=== PATIENT | male | born 1965 | race African-American/Black ===

== ENCOUNTER 2021-11-02 03:03 | Inpatient (IN) ==
[2021-11-02] MEDS ORDERED: LACTATED RINGERS 1,000 ML IV ONE (05:14)
[2021-11-02 05:35] LABS: Basophils % 0.1 % (0.0-0.8); Eosinophils # 0.1 10*3/uL (0.0-0.87); Eosinophils % 1.2 % (0.00-10.9); Hematocrit 26.1 VOL% (42.0-52.0); Hemoglobin 8.7 GM/DL (14.0-18.0); Immature Granulocytes % 0.4 %; Immature Granulocytes Absolute 0.03 #; Lymphocytes # 1.6 10*3/uL (1.4-4.0); Lymphocytes % 20.9 % (21.2-54.2); Mean Corpuscular HGB Conc 33.3 GM/DL (32-36); Mean Corpuscular Volume 81.8 FL (87-102); Mean Platelet Volume 12.5 FL (9.6-12.0); Monocytes % 9.2 % (1.7-12.7); Neutrophils % 68.2 % (38.7-73.9); Platelet Count 221 T/CUMM (130-400); Red Blood Count 3.19 MC/CUMM (3.8-5.5); Red Cell Distribution Width 14.2 % (9.3-17.3); White Blood Count 7.8 T/CUMM (4-12)
[2021-11-02 06:09] LABS: Calcium 9.1 MG/DL (8.5-10.1); Potassium 5.9 MMOL/L (3.5-5.1)
[2021-11-02 06:31] LABS: Eosinophils 2 % (0-10); Lymphocytes 28 % (20-55); Metamyelocytes 1 %; Platelet Estimate Normal; Segmented Neutrophils 66 % (50-85); Total Cells Counted 100
[2021-11-02 06:32] LABS: Hypochromia 1+; Microcytosis 1+; Polychromasia Slight
[2021-11-02 06:44] LABS: Barbiturates Screen,Urine Negative (Negative); Benzodiazepines Screen,Urine Negative (Negative); Cannabinoid Screen,Urine Positive (Negative); Opiate Screen,Urine Negative (Negative); Phencyclidine Screen,Urine Negative (Negative)
[2021-11-02] MEDS ORDERED: SODIUM CHLORIDE 0.9% 1,000 ML IV STA (08:03)
[2021-11-02] MEDS ORDERED: ONDANSETRON 4 MG/2 ML VIAL IV PRN (09:11)
[2021-11-02 09:46] LABS: ABG Base Excess -10.2 MMOL/L (-2.5-2.5); ABG HCO3 16.2 MMOL/L (20-26); ABG Oxygen Saturation 95.8 % (95-100); ABG PCO2 34.8 MM HG (35-48); ABG PH 7.269 (7.35-7.45); ABG TCO2 14.9 MMOL/L (23-27)
[2021-11-02] MEDS ORDERED: SODIUM BICARB INJ 50 MEQ in SODIUM CHLORIDE 0.45% 1,000 ML IV SCH (10:00)
[2021-11-02 10:36] LABS: Calcium 8.9 MG/DL (8.5-10.1); Osmolality,Calculated 294.4 MOS/KG (273-304); Potassium 5.7 MMOL/L (3.5-5.1)
[2021-11-02 10:46] LABS: Thyroid Stimulating Hormone 0.841 uIU/ml (0.358-3.74)
[2021-11-02] MEDS: HEPARIN 5,000 UNIT/1 ML VIAL SUBCUT SCH ×2 (11:48→21:29)
[2021-11-02] MEDS: PANTOPRAZOLE 40 MG TABLET PO SCH (11:48)
[2021-11-02] MEDS: THIAMINE 100 MG TABLET PO SCH (11:48)
[2021-11-02] MEDS: FOLIC ACID 1 MG TABLET PO SCH (11:48)
[2021-11-02 13:00] LABS: Calcium 9.1 MG/DL (8.5-10.1); Osmolality,Calculated 292.5 MOS/KG (273-304)
[2021-11-02 14:13] LABS: Bacteria,Urine Occasional /HPF (Few); Bilirubin,Urine Negative (Negative); Blood, Urine Small mg/dL (Negative); Glucose,Urine (UA) Negative (Negative); Ketones,Urine Negative (Negative); Mucus,Urine Occasional /LPF (Occasional); Nitrite,Urine Negative (Negative); Protein,Urine Negative; RBC,Urine 1 /HPF (0-4); Urine Appearance CLEAR (Clear); Urine Color Colorless (Yellow); Urine Specific Gravity 1.006 (1.001-1.035); Urine Urobilinogen < 2.0 EU/DL (<2.0)
[2021-11-02 14:32] LABS: Protein/Creatinine Ratio,Urine 0.6 RATIO
[2021-11-02] MEDS: SODIUM BICARB INJ 50 MEQ in SODIUM CHLORIDE 0.45% 1,000 ML IV SCH (14:33)
[2021-11-02] MEDS: SODIUM ZIRCONIUM CYCLOSILICATE 10 GM PACK PO SCH (14:34)
[2021-11-02] MEDS: ALBUTEROL/IPRATROPIUM 3 ML NEB RESP TX SCH ×2 (15:00→19:52)
[2021-11-02 22:09] LABS: Calcium 8.6 MG/DL (8.5-10.1); Osmolality,Calculated 295.3 MOS/KG (273-304); Potassium 5.5 MMOL/L (3.5-5.1)
[2021-11-03] MEDS: ALBUTEROL/IPRATROPIUM 3 ML NEB RESP TX SCH ×4 (00:20→19:29)
[2021-11-03] MEDS: SODIUM BICARB INJ 50 MEQ in SODIUM CHLORIDE 0.45% 1,000 ML IV SCH ×3 (00:30→21:05)
[2021-11-03 05:40] LABS: Calcium 8.9 MG/DL (8.5-10.1); Osmolality,Calculated 294.1 MOS/KG (273-304); Potassium 4.9 MMOL/L (3.5-5.1)
[2021-11-03 05:44] LABS: Risk Ratio 2.38; VLDL Cholesterol 19.8 MG/DL
[2021-11-03 09:25] LABS: Basophils % 0.3 % (0.0-0.8); Eosinophils # 0.1 10*3/uL (0.0-0.87); Eosinophils % 1.4 % (0.00-10.9); Hematocrit 26.3 VOL% (42.0-52.0); Hemoglobin 8.9 GM/DL (14.0-18.0); Immature Granulocytes % 0.3 %; Immature Granulocytes Absolute 0.02 #; Lymphocytes # 1.1 10*3/uL (1.4-4.0); Lymphocytes % 14.3 % (21.2-54.2); Mean Corpuscular HGB Conc 33.8 GM/DL (32-36); Mean Corpuscular Volume 81.7 FL (87-102); Mean Platelet Volume 12.1 FL (9.6-12.0); Monocytes % 8.9 % (1.7-12.7); Neutrophils % 74.8 % (38.7-73.9); Platelet Count 183 T/CUMM (130-400); Red Blood Count 3.22 MC/CUMM (3.8-5.5); Red Cell Distribution Width 13.9 % (9.3-17.3); White Blood Count 7.7 T/CUMM (4-12)
[2021-11-03] MEDS: SODIUM ZIRCONIUM CYCLOSILICATE 10 GM PACK PO SCH (09:42)
[2021-11-03] MEDS: HEPARIN 5,000 UNIT/1 ML VIAL SUBCUT SCH ×2 (09:42→21:02)
[2021-11-03] MEDS: FOLIC ACID 1 MG TABLET PO SCH (09:43)
[2021-11-03] MEDS: PANTOPRAZOLE 40 MG TABLET PO SCH (09:43)
[2021-11-03] MEDS: THIAMINE 100 MG TABLET PO SCH (09:43)
[2021-11-03 11:03] LABS: Eosinophils 1 % (0-10); Lymphocytes 16 % (20-55); Microcytosis 2+; Platelet Estimate Adequate; Polychromasia Slight; Schistocytes Slight; Segmented Neutrophils 77 % (50-85); Target Cells Few; Total Cells Counted 100
[2021-11-03 11:04] LABS: Hypochromia 1+
[2021-11-03] MEDS: SODIUM BICARBONATE 650 MG TABLET PO SCH (21:02)
[2021-11-04] MEDS: ALBUTEROL/IPRATROPIUM 3 ML NEB RESP TX SCH ×3 (00:51→13:50)
[2021-11-04 05:43] LABS: Basophils % 0.3 % (0.0-0.8); Eosinophils # 0.1 10*3/uL (0.0-0.87); Eosinophils % 2.2 % (0.00-10.9); Hematocrit 24.1 VOL% (42.0-52.0); Hemoglobin 8.1 GM/DL (14.0-18.0); Immature Granulocytes % 0.3 %; Immature Granulocytes Absolute 0.02 #; Lymphocytes # 1.5 10*3/uL (1.4-4.0); Lymphocytes % 25.1 % (21.2-54.2); Mean Corpuscular HGB Conc 33.6 GM/DL (32-36); Mean Corpuscular Volume 81.7 FL (87-102); Mean Platelet Volume 12.8 FL (9.6-12.0); Monocytes % 9.8 % (1.7-12.7); Neutrophils % 62.3 % (38.7-73.9); Platelet Count 170 T/CUMM (130-400); Red Blood Count 2.95 MC/CUMM (3.8-5.5); White Blood Count 5.8 T/CUMM (4-12)
[2021-11-04] MEDS: SODIUM BICARB INJ 50 MEQ in SODIUM CHLORIDE 0.45% 1,000 ML IV SCH ×2 (05:55→10:54)
[2021-11-04 05:56] LABS: Calcium 8.7 MG/DL (8.5-10.1); Osmolality,Calculated 285.4 MOS/KG (273-304); Potassium 4.4 MMOL/L (3.5-5.1)
[2021-11-04 06:00] LABS: Albumin 2.8 G/DL (3.4-5.0); Calcium 8.9 MG/DL (8.5-10.1); Osmolality,Calculated 285.4 MOS/KG (273-304); Potassium 4.5 MMOL/L (3.5-5.1)
[2021-11-04] MEDS: PANTOPRAZOLE 40 MG TABLET PO SCH (09:34)
[2021-11-04] MEDS: THIAMINE 100 MG TABLET PO SCH (09:34)
[2021-11-04] MEDS: SODIUM BICARBONATE 650 MG TABLET PO SCH (09:34)
[2021-11-04] MEDS: SODIUM ZIRCONIUM CYCLOSILICATE 10 GM PACK PO SCH (09:34)
[2021-11-04] MEDS: FOLIC ACID 1 MG TABLET PO SCH (09:34)
[2021-11-04] MEDS: HEPARIN 5,000 UNIT/1 ML VIAL SUBCUT SCH (09:34)
[2021-11-04 16:43] VITALS: BP 156/89
== END 2021-11-04 16:40 | disposition home or self-care (01) | DRG 682 ==
LOC: N.ED 03:03 → N.EDINP 09:27 → SUATTDRO 09:27 → N.3E 09:48
PROVIDERS: ADMIT Internal Medicine; ATTEND Internal Medicine